=== PATIENT | female | born 1980 | race African-American/Black ===

== ENCOUNTER 2017-11-22 12:19 | Emergency (ER) | payer MEDICAID ==
[~2017-11-22] VITALS: Ht 162.6 cm; Wt 86.2 kg
[2017-11-22] MEDS ORDERED: BETA15CR3 TP (14:03)
--- NOTE | 2017-11-22 14:04 | PHYS DOC ---
Adult General Chief Complaint Chief Complaint: INSECT BITE [facility] HPI Patient is a 37 year old female who presents with 3 mosquito bites on her right foot and one mosquito bite on her left foot 2 days. Patient denies any fever, nausea, vomiting, diarrhea. Review of Systems Review of Systems Constitutional: Denies fever or chills [] Eyes: Denies change in visual acuity, redness, or eye pain [] HENT: Denies nasal congestion or sore throat [] Respiratory: Denies cough or shortness of breath [] Cardiovascular: No additional information not addressed in HPI [] GI: Denies abdominal pain, nausea, vomiting, bloody stools or diarrhea [] : Denies dysuria or hematuria [] Musculoskeletal: Denies back pain or joint pain [] Integument: Insect bites to right foot x 3 and 1 to her left ankle. Denies rash or skin lesions [] Neurologic: Denies headache, focal weakness or sensory changes [] Endocrine: Denies polyuria or polydipsia [] All other systems were reviewed and found to be within normal limits, except as documented in this note. Physical Exam Physical Exam Constitutional: Well developed, well nourished, no acute distress, non-toxic appearance. [] HENT: Normocephalic, atraumatic, bilateral external ears normal, oropharynx moist, no oral exudates, nose normal. [] Eyes: PERRLA, EOMI, conjunctiva normal, no discharge. [] Neck: Normal range of motion, no tenderness, supple, no stridor. [] Cardiovascular:Heart rate regular rhythm, no murmur [] Lungs & Thorax: Bilateral breath sounds clear to auscultation [] Abdomen: Bowel sounds normal, soft, no tenderness, no masses, no pulsatile masses. [] Skin: Right foot has 3 insect bites right foot that are small, red and nondraining. Left ankle has 1 insect bite to left ankle that is small red and non draining. Warm, dry, no erythema, no rash. [] Back: No tenderness, no CVA tenderness. [] Extremities: No tenderness, no cyanosis, no clubbing, ROM intact, no edema. [] Neurologic: Alert and oriented X 3, normal motor function, normal sensory function, no focal deficits noted. [] Psychologic: Affect normal, judgement normal, mood normal. [] EKG EKG [] Radiology/Procedures Radiology/Procedures [] Course & Med Decision Making Course & Med Decision Making Upon examination patient has 3 small red non draining papules and left ankle has one small red non draining papules. These bites are very Puretic. No signs of infection. Patient denies nausea, vomiting, headache, or fever. AO x4. Patient is neurologically intact. Patient to be discharged with a referral pamphlet to primary care physicians and with Betamethasone cream to apply to bites. [] Dragon Disclaimer Dragon Disclaimer This electronic medical record was generated, in whole or in part, using a voice recognition dictation system. Departure Departure Impression: Primary Impression: Insect bite Disposition: HOME, SELF-CARE Condition: STABLE Referrals: UNKNOWN PCP NAME (PCP) Patient Instructions: Insect Bite Additional Instructions: Use medications as prescribed. Use Benadryl for itching. Scripts Betamethasone/Propylene Glyc (BETAMETHASONE DP AUG 0.05% CRM) 15 Gm Cream..g. 15 GM TP PRN PRN for ITCHING, #1 EACH Prov: DARREL KATZ APRN 11/22/17 Problem Qualifiers Primary Impression: Insect bite Encounter type: initial encounter Qualified Codes: W57.XXXA - Bitten or stung by nonvenomous insect and other nonvenomous arthropods, initial encounter DARREL KATZ APRN Nov 22, 2017 14:04
[2017-11-22 14:10] VITALS: BP 115/67
== END 2017-11-22 14:14 | disposition home or self-care (01) ==
LOC: ER 12:19
DX: S90.861A Insect bite (nonvenomous), right foot, initial encounter (principal); W57.XXXA Bitten or stung by nonvenomous insect and other nonvenomous arthropods, initial encounter; Y93.89 Activity, other specified; Y92.89 Other specified places as the place of occurrence of the external cause; Y99.8 Other external cause status
CPT/HCPCS: 99283